=== PATIENT | female | born 2000 | race Caucasian/White ===

== ENCOUNTER 2019-04-29 00:30 | Emergency (ER) | payer MEDICAID ==
--- NOTE | 2019-04-29 00:57 | EDM.PDOC ---
ED HPI GENERAL MEDICAL PROBLEM - General Chief Complaint: Abdominal Pain Stated Complaint: ABD PAIN Time Seen by Provider: 04/29/19 00:39 - History of Present Illness INITIAL COMMENTS - FREE TEXT/NARRATIVE: HISTORY AND PHYSICAL: History of present illness: The patient is a 18-year-old female with no history who says that she gets regular periods but is unsure if she is and presents with suprapubic pain and pressure with urination that started just prior to arrival. The patient says that throughout the day she had no systemic complaints of fever chills abdominal pain flank pain dysuria frequency or urgency and she says she has no STD risks. She denies any vaginal discharge or irregular vaginal bleeding. She says that this evening she was laying in bed and she felt the urge to urinate she got up to go to the bathroom and only had dribbling and a lot of pressure with that. She did not have hematuria and she had some suprapubic discomfort with that so she thought she should come in. She says that her suprapubic pain does not localize right or left. She did not take any medications [id number]. She admits that she drinks caffeinated products along with water. She has Never had a UTI kidney stone or other problems such as ovarian cysts in the past Review of systems: As per history of present illness and below otherwise all systems reviewed and negative. Past medical history: As per history of present illness and as reviewed below otherwise noncontributory. Surgical history: As per history of present illness and as reviewed below otherwise noncontributory. Social history: No reported history of drug or alcohol abuse. Family history: As per history of present illness and as reviewed below otherwise noncontributory. Physical exam: General: Well-developed well-nourished female who is nontoxic and vital signs are noted by me. She moves easily in the ED without distress HEENT: Atraumatic, normocephalic, negative for conjunctival pallor or scleral icterus, mucous membranes moist, throat clear, neck supple, nontender, trachea midline. Lungs: Clear to auscultation, breath sounds equal bilaterally, chest nontender. Heart: S1S2, regular rate and rhythm no overt murmurs Abdomen: Soft, nondistended, nontender. NABS Negative for costovertebral tenderness. Pelvis: Stable nontender. Genitourinary: Deferred. Rectal: Deferred. Extremities: Atraumatic, negative for cords or calf pain. Neurovascular unremarkable. Neuro: Awake, alert, oriented. Cranial nerves II through XII unremarkable. Cerebellum unremarkable. Motor and sensory unremarkable throughout. Exam nonfocal. Diagnostics: UA with reflex UCG Therapeutics: I discussed the urine test with the patient I did offer her blood work as well as an x-ray to see if there is another cause for her suprapubic discomfort and she would like to decline at this time. I did tell her that she needs to drink more fluids as her specific gravity was 1020 and her urine did look somewhat darker on my visual inspection. She does admit that she doesn't miss early drink as much water and hydrating fluids as she should. I have offered her some Pyridium to help for the spasm and pressure and will give her follow-up Impression: Dysuria/suprapubic pain Definitive disposition and diagnosis as appropriate pending reevaluation and review of above. suprapubic Pain Score (Numeric/FACES): 5 - Related Data Allergies Allergy/AdvReac Type Severity Reaction Status Date / Time No Known Allergies Allergy Verified 04/29/19 00:44 Home Meds: Home Meds . [No Known Home Meds] 04/29/19 [History] Past Medical History - Past Surgical History GI Surgical History: Reports: Cholecystectomy Social & Family History - Family History Family Medical History: Noncontributory - Tobacco Use Smoking Status *Q: Never Smoker - Recreational Drug Use Recreational Drug Use: No ED ROS GENERAL - Review of Systems Review Of Systems: ROS reveals no pertinent complaints other than HPI. ED EXAM, GENERAL - Physical Exam Exam: See Below (See dictation) Course - Vital Signs Last Recorded V/S: Last Vital Signs Temp 35.8 C 04/29/19 00:37 Pulse 82 04/29/19 00:37 Resp 18 04/29/19 00:37 BP 133/80 04/29/19 00:37 Pulse Ox 96 04/29/19 00:37 - Orders/Labs/Meds Labs: Laboratory Tests 04/29/19 04/29/19 Range/Units 00:40 00:40 Urine Color YELLOW Urine Appearance CLEAR Urine pH 6.5 (5.0-8.0) Ur Specific [place] 1.020 (1.001-1.035) Urine Protein NEGATIVE (NEGATIVE) mg/dL Urine Glucose (UA) NEGATIVE (NEGATIVE) mg/dL Urine Ketones NEGATIVE (NEGATIVE) mg/dL Urine Occult Blood NEGATIVE (NEGATIVE) Urine Nitrite NEGATIVE (NEGATIVE) Urine Bilirubin NEGATIVE (NEGATIVE) Urine Urobilinogen 0.2 (<2.0) EU/dL Ur Leukocyte Esterase NEGATIVE (NEGATIVE) Urine HCG, Qual NEGATIVE (NEGATIVE) Departure - Departure Time of Disposition: 01:14 Disposition: Home, Self-Care 01 Condition: Good Clinical Impression: Suprapubic pain, Dysuria - Discharge Information Referrals: PCP,None [Primary Care Provider] - Forms: ED Department Discharge Additional Instructions: The following information is given to patients seen in the emergency department who are being discharged to home. This information is to outline your options for follow-up care. We provide all patients seen in our emergency department with a follow-up referral. The need for follow-up, as well as the timing and circumstances, are variable depending upon the specifics of your emergency department visit. If you don't have a primary care physician on staff, we will provide you with a referral. We always advise you to contact your personal physician following an emergency department visit to inform them of the circumstance of the visit and for follow-up with them and/or the need for any referrals to a consulting specialist. The emergency department will also refer you to a specialist when appropriate. This referral assures that you have the opportunity for followup care with a specialist. All of these measure are taken in an effort to provide you with optimal care, which includes your followup. Under all circumstances we always encourage you to contact your private physician who remains a resource for coordinating your care. When calling for followup care, please make the office aware that this follow-up is from your recent emergency room visit. If for any reason you are refused follow-up, please contact the [facility] emergency department at and ask to speak to the emergency department charge nurse. [facility] [address] [id number] Push hydration and try to reduce and/or avoid caffeinated products. Please call and schedule a follow-up appointment in our clinic for further care and reevaluation and return to ER as needed and as discussed. Filled the prescription for Pyridium that can help you with bladder spasm and discomfort. He may also use [id number] medications as you choose such as ibuprofen/ Motrin for any pain.
== END 2019-04-29 01:24 | disposition home or self-care (01) ==
LOC: MW.ED 00:30
DX: R10.30 Lower abdominal pain, unspecified (principal); R30.0 Dysuria
CPT/HCPCS: 81003; 81025; 99283

== ENCOUNTER 2019-09-08 12:32 | Emergency (ER) | payer MEDICAID ==
--- NOTE | 2019-09-08 13:17 | EDM.PDOC ---
ED HPI GENERAL MEDICAL PROBLEM - General Chief Complaint: ENT Problem Stated Complaint: EAR CLOGGED Time Seen by Provider: 09/08/19 13:16 Source of Information: Reports: Patient History Limitations: Reports: No Limitations - History of Present Illness INITIAL COMMENTS - FREE TEXT/NARRATIVE: HISTORY AND PHYSICAL: History of present illness: Patient is a 19-year-old female presents to the ED with complaint of ear pain, sore throat, and cough. She states symptoms began 2 days ago. She has been using drops in her ears without relief of symptoms. She denies fevers, chills, chest pain, nausea, vomiting, abdominal pain, diarrhea. Review of systems: As per history of present illness and below otherwise all systems reviewed and negative. Past medical history: As per history of present illness and as reviewed below otherwise noncontributory. Surgical history: As per history of present illness and as reviewed below otherwise noncontributory. Social history: No reported history of drug or alcohol abuse. Family history: As per history of present illness and as reviewed below otherwise noncontributory. Physical exam: General: Patient sitting comfortably in no acute distress and nontoxic appearing HEENT: Right TM is erythematous and bulging with loss of light reflex. Atraumatic, normocephalic, pupils reactive, negative for conjunctival pallor or scleral icterus, mucous membranes moist, throat clear, neck supple, nontender, trachea midline. No meningeal signs. Lungs: Clear to auscultation, breath sounds equal bilaterally, chest nontender. Heart: S1S2, regular, negative for clicks, rubs, or overt murmur. Abdomen: Soft, nondistended, nontender. Negative for masses or hepatosplenomegaly. Negative for costovertebral tenderness. No rigidity, rebound , guarding. Pelvis: Stable nontender. Genitourinary: Deferred. Rectal: Deferred. Extremities: Atraumatic, negative for cords or calf pain. Neurovascular unremarkable. Neuro: Awake, alert, oriented. Cranial nerves II through XII unremarkable. Cerebellum unremarkable. Motor and sensory unremarkable throughout. Exam nonfocal. Notes: Diagnostics: none Therapeutics: none Prescriptions: Amoxicillin Impression: Right otitis media Plan: Take antibiotic as instructed Alternate tylenol and motrin as needed Follow up with primary care provider Return to ED as needed as discussed Definitive disposition and diagnosis as appropriate pending reevaluation and review of above. ears Pain Score (Numeric/FACES): 8 - Related Data Allergies Allergy/AdvReac Type Severity Reaction Status Date / Time No Known Allergies Allergy Verified 09/08/19 13:00 Home Meds: Home Meds Amoxicillin 875 mg PO BID 7 Days #14 tab 09/08/19 [Rx] Past Medical History - Past Health History Medical/Surgical History: Denies Medical/Surgical History - Past Surgical History GI Surgical History: Reports: Cholecystectomy Social & Family History - Family History Family Medical History: Noncontributory - Tobacco Use Smoking Status *Q: Never Smoker - Recreational Drug Use Recreational Drug Use: No ED ROS ENT - Review of Systems Review Of Systems: Comprehensive ROS is negative, except as noted in HPI. ED EXAM, ENT - Physical Exam Exam: See Below (see dictation) Course - Vital Signs Last Recorded V/S: Last Vital Signs Temp 97.1 F 09/08/19 12:58 Pulse 93 09/08/19 12:58 Resp 18 09/08/19 12:58 BP 130/76 09/08/19 12:58 Pulse Ox 98 09/08/19 12:58 - Orders/Labs/Meds Orders: Active Orders 24 hr Category Date Time Status INFLUENZA A+B AG SCREEN [RM] Stat Lab 09/08/19 13:12 Stop Req Departure - Departure Time of Disposition: 13:23 Disposition: Home, Self-Care 01 Condition: Good Clinical Impression: Right otitis media - Discharge Information Prescriptions: Amoxicillin 875 mg PO BID 7 Days #14 tab Referrals: PCP,None [Primary Care Provider] - Forms: ED Department Discharge Additional Instructions: The following information is given to patients seen in the emergency department who are being discharged to home. This information is to outline your options for follow-up care. We provide all patients seen in our emergency department with a follow-up referral. The need for follow-up, as well as the timing and circumstances, are variable depending upon the specifics of your emergency department visit. If you don't have a primary care physician on staff, we will provide you with a referral. We always advise you to contact your personal physician following an emergency department visit to inform them of the circumstance of the visit and for follow-up with them and/or the need for any referrals to a consulting specialist. The emergency department will also refer you to a specialist when appropriate. This referral assures that you have the opportunity for follow-up care with a specialist. All of these measure are taken in an effort to provide you with optimal care, which includes your follow-up. Under all circumstances we always encourage you to contact your private physician who remains a resource for coordinating your care. When calling for follow-up care, please make the office aware that this follow-up is from your recent emergency room visit. If for any reason you are refused follow-up, please contact the [facility] Emergency Department at and asked to speak to the emergency department charge nurse. [facility] [address], [place] [address] [facility] [address] [place] [id number] Take antibiotic as instructed Alternate tylenol and motrin as needed Follow up with primary care provider Return to ED as needed as discussed Sepsis Event Note - Evaluation Sepsis Screening Result: No Definite Risk - Focused Exam Vital Signs: Vital Signs Temp Pulse Resp BP Pulse Ox 09/08/19 12:58 97.1 F 93 18 130/76 98 Date Exam was Performed: 09/08/19 Time Exam was Performed: 13:25 - My Orders Last 24 Hours: My Active Orders 09/08/19 13:12 INFLUENZA A+B AG SCREEN [RM] Stat - Assessment/Plan Last 24 Hours: My Active Orders 09/08/19 13:12 INFLUENZA A+B AG SCREEN [RM] Stat
== END 2019-09-08 13:53 | disposition home or self-care (01) ==
LOC: MW.ED 12:32
DX: H66.91 Otitis media, unspecified, right ear (principal)
CPT/HCPCS: 99283

== ENCOUNTER 2021-07-18 11:24 | Emergency (ER) | payer MEDICAID ==
--- NOTE | 2021-07-18 11:25 | EDM.PDOC ---
ED HPI GENERAL MEDICAL PROBLEM - General Chief Complaint: Respiratory Problem Stated Complaint: COUGH Time Seen by Provider: 07/18/21 11:24 Source of Information: Reports: Patient History Limitations: Reports: No Limitations - History of Present Illness INITIAL COMMENTS - FREE TEXT/NARRATIVE: HISTORY AND PHYSICAL: History of present illness: Patient is a 20-year-old female who presents to the emergency room with complaints of sore throat, mild nausea and cough x4 days. Mom states her 1-year-old daughter has had a fever which is now resolved and has a cough. She is concerned they may have COVID-19. Patient denies any fever, chills, headache, change in vision, syncope or near syncope. Denies any chest pain, back pain, shortness of breath. Denies any abdominal pain, vomiting, diarrhea, constipation or dysuria. Has not noted any blood in urine or stool. Patient has been eating and drinking appropriately. No recent travel or sick contacts. Has not been vaccinated, had COVID-19 about a year ago. Review of systems: As per history of present illness and below otherwise all systems reviewed and negative. Past medical history: As per history of present illness and as reviewed below otherwise noncontributory. Surgical history: As per history of present illness and as reviewed below otherwise noncontributory. Social history: See social history for further information Family history: As per history of present illness and as reviewed below otherwise noncontributory. Physical exam: General: Well developed and well nourished 20 year old female. Alert and or ientated x 3. Nontoxic in appearance and in no acute distress. Vital signs are stable and have been reviewed by me. Nursing notes were reviewed. HEENT: Atraumatic, normocephalic, pupils equal and reactive bilaterally, negative for conjunctival pallor or scleral icterus, mucous membranes moist, TMs normal bilaterally, throat clear, neck supple, nontender, trachea midline. No drooling or trismus noted. No meningeal signs. No hot potato voice noted. Lungs: Slightly diminished to auscultation bilaterally. No wheezes, rales, or rhonchi. Chest nontender. Normal work of breathing, no accessory muscles used. Heart: S1S2, regular rate and rhythm without overt murmur, gallops, or rubs. No JVD. No peripheral edema Abdomen: Soft, nondistended, nontender. Normoactive bowel sounds. Negative for masses or costovertebral tenderness. Skin: Intact, warm, dry. No lesions or rashes noted. Hematologic: No petechiae or purpra. Mucosa appropriate color and normal nail bed color and refill. Extremities: Atraumatic, moves all extremities per self without difficulty or deficits, negative for cords or calf pain. Neurovascular unremarkable. Neuro: Awake, alert, oriented. Cranial nerves II through XII unremarkable. Cerebellum unremarkable. Motor and sensory unremarkable throughout. Exam nonfocal. Psychiatric: Mood and affect are appropriate. Normal thought process. Answering questions appropriately. Please note that the patient was seen and evaluated during the 2019 SARS-CoV-2 novel coronavirus pandemic period. Community viral transmission is ongoing at time of this encounter and the emergency department is operating under pandemic response procedures. Medical Decision Making: Chest x-ray is unremarkable. Patient's Covid and influenza screening are negative. Due to length of symptoms and physical exam I will treat with a Z- Andrea. I have talked with the patient about today's findings, in addition to providing specific details for plan of care. Reassessment at the time of disposition demonstrates that the patient is in no acute distress. The patient is stable for discharge, counseling was provided and we discussed in great detail signs and symptoms that would prompt them to return to the Emergency Department. Medication, follow up and supportive care measures were reviewed and discussed. Voices understanding and is agreeable to plan of care. Denies any further questions or concerns at this time. Diagnostics: Influenza/COVID, chest x-ray Therapeutics: None Prescription: Z-Andrea Impression: Bronchitis Plan: 1. You were evaluated today on an emergent basis. Your COVID and influenza tests are negative. Treating you for bronchitis with Zpak. 2. You can alternate Tylenol and ibuprofen as needed for pain and fever management. 3. We encourage you to follow up with your primary care provider and/or recommended specialist in the next few days for re-evaluation and further care/management. 4. If your symptoms should worsen, new symptoms develop or any of the signs and symptoms we discussed should arise please return to the emergency room or call 911 (if needed). Definitive disposition and diagnosis as appropriate pending reevaluation and review of above. - Related Data Allergies Allergy/AdvReac Type Severity Reaction Status Date / Time No Known Allergies Allergy Verified 07/18/21 12:27 Home Meds: Home Meds Azithromycin [Zithromax] 1 dose PO DAILY 5 Days #6 tab 07/18/21 [Rx] Past Medical History - Past Health History Medical/Surgical History: Denies Medical/Surgical History - Past Surgical History GI Surgical History: Reports: Cholecystectomy Social & Family History - Family History Family Medical History: No Pertinent Family History ED ROS GENERAL - Review of Systems Review Of Systems: Comprehensive ROS is negative, except as noted in HPI. ED EXAM, GENERAL - Physical Exam Exam: See Below (See dictation) Course - Vital Signs Last Recorded V/S: Last Vital Signs Temp 98.6 F 07/18/21 11:50 Pulse 90 07/18/21 11:50 Resp 17 07/18/21 11:50 BP 127/80 07/18/21 11:50 Pulse Ox 97 07/18/21 11:50 - Orders/Labs/Meds Labs: Laboratory Tests 07/18/21 Range/Units 12:07 Influenza Type A RNA NEGATIVE (NEGATIVE) Influenza Type B RNA NEGATIVE (NEGATIVE) SARS-CoV-2 RNA (RUSSEL) NEGATIVE (NEGATIVE) Departure - Departure Time of Disposition: 12:50 Disposition: Home, Self-Care 01 Clinical Impression: Bronchitis - Discharge Information Prescriptions: Azithromycin [Zithromax] 1 dose PO DAILY 5 Days #6 tab Instructions: Acute Bronchitis, Adult, [id number] Forms: ED Department Discharge Additional Instructions: The following information is given to patients seen in the emergency department who are being discharged to home. This information is to outline your options for follow-up care. We provide all patients seen in our emergency department with a follow-up referral. The need for follow-up, as well as the timing and circumstances, are variable depending upon the specifics of your emergency department visit. If you don't have a primary care physician on staff, we will provide you with a referral. We always advise you to contact your personal physician following an emergency department visit to inform them of the circumstance of the visit and for follow-up with them and/or the need for any referrals to a consulting specialist. The emergency department will also refer you to a specialist when appropriate. This referral assures that you have the opportunity for follow-up care with a specialist. All of these measure are taken in an effort to provide you with optimal care, which includes your follow-up. Under all circumstances we always encourage you to contact your private physician who remains a resource for coordinating your care. When calling for follow-up care, please make the office aware that this follow-up is from your recent emergency room visit. If for any reason you are refused follow-up, please contact the [facility] Emergency Department at and asked to speak to the emergency department charge nurse. [facility] Primary [facility] [address] [place] [address] [facility] [address] [place] [address] Thank you for choosing the [facility] emergency department in [place] for your medical needs today. It was a pleasure caring for you. Today you were seen in the emergency department for cough Your prescription was electronically sent to: [facility] pharmacy Medication/Directions: Z-Andrea, antibiotic. Please take as directed 1. You were evaluated today on an emergent basis. Your COVID and influenza tests are negative. Treating you for bronchitis with Zpak. 2. You can alternate Tylenol and ibuprofen as needed for pain and fever management. 3. We encourage you to follow up with your primary care provider and/or recommended specialist in the next few days for re-evaluation and further care/management. 4. If your symptoms should worsen, new symptoms develop or any of the signs and symptoms we discussed should arise please return to the emergency room or call 911 (if needed). Sepsis Event Note (ED) - Focused Exam Vital Signs: Vital Signs Temp Pulse Resp BP Pulse Ox 07/18/21 11:50 98.6 F 90 17 127/80 97
--- NOTE | 2021-07-18 12:14 | CR ---
Indication: Cough Technique: Chest 1 view Comparison: None Findings/Impression: Cardiovascular and mediastinum: Heart size and vasculature are normal in caliber and appearance. Mediastinum is within normal limits. Lungs and pleural space: Lungs are clear. No sign of infiltrate or mass. No sign of pleural effusion. No pneumothorax. Bones and soft tissues: No significant findings. Dictated by Fabiola Keller MD @ 07/18/2021 12:14:13 PM (Electronically Signed)
[2021-07-18 12:48] LABS: CORONAVIRUS COVID-19 NAA NEGATIVE (NEGATIVE); INFLUENZA A NAA NEGATIVE (NEGATIVE); INFLUENZA B NAA NEGATIVE (NEGATIVE)
== END 2021-07-18 13:00 | disposition home or self-care (01) ==
LOC: MW.ED 11:24
DX: J40 Bronchitis, not specified as acute or chronic (principal); Z20.822 Contact with and (suspected) exposure to COVID-19
CPT/HCPCS: 0240U; 71045; 99283

== ENCOUNTER 2021-10-20 02:25 | Emergency (ER) | payer MEDICAID ==
[2021-10-20] MEDS ORDERED: Sodium Chloride 0.9% 2.5 ML Syringe FLUSH PRN (02:45)
[2021-10-20] MEDS ORDERED: Ondansetron 4 MG/2 ML SDV IVPUSH ONE (02:45)
[2021-10-20] MEDS ORDERED: Sodium Chloride 0.9% 1,000 ML IV ONE ×2 (02:45→04:50)
[2021-10-20] MEDS ORDERED: Sodium Chloride 0.9% 10 ML Syringe FLUSH PRN (02:45)
[2021-10-20] MEDS ORDERED: Ketorolac 30 MG/ML SDV IVPUSH ONE (02:46)
[2021-10-20 03:34] LABS: BLOOD UREA NITROGEN,BUN 11 mg/dL (7.0-18.0); CARBON DIOXIDE,CO2 24.5 mmol/L (21.0-32.0); CHLORIDE,CL 101 mmol/L (98-107); GLUCOSE RANDOM 124 mg/dL (74-106); LIPASE 56 U/L (73-393); POTASSIUM,K 3.2 mmol/L (3.5-5.1); SODIUM,NA 137 mmol/L (136-145)
[2021-10-20] MEDS ORDERED: Iopamidol 755 MG/ML 500 ML Multipack Bottle IVPUSH STA (04:01)
[2021-10-20] MEDS ORDERED: Ertapenem 1 GM in Sodium Chloride 0.9% 50 ML IV ONE (07:21)
== END 2021-10-20 08:09 | disposition home or self-care (01) ==
LOC: MW.ED 02:25
DX: I88.0 Nonspecific mesenteric lymphadenitis (principal)
CPT/HCPCS: 36415; 74177; 80053; 81001; 83690; 84703; 85025; 96365; 96375; 99284; J1335; J1885; J2405; J7030; Q9967; 99283

== ENCOUNTER 2021-11-10 15:11 | Emergency (ER) | payer MEDICAID ==
[2021-11-10] MEDS ORDERED: Diphtheria,Pertussis(Acell),Tetanus Vaccine 0.5 ML Syringe IM ONE (16:03)
[2021-11-10] MEDS ORDERED: Lidocaine 1% 5 ML VIAL INJECT ONE (16:03)
[2021-11-10] MEDS ORDERED: Bupivacaine 0.25% 10 ML SDV INJECT ONE (16:03)
[2021-11-10] MEDS ORDERED: Bacitracin Oint 1 GM U/D Packet TOP ONE (16:37)
== END 2021-11-10 17:20 | disposition home or self-care (01) ==
LOC: MW.ED 15:11
DX: S61.411A Laceration without foreign body of right hand, initial encounter (principal); Z23 Encounter for immunization; Z90.49 Acquired absence of other specified parts of digestive tract; W26.0XXA Contact with knife, initial encounter
CPT/HCPCS: 12001; 90471; 90715; 99282; J3490

== ENCOUNTER 2021-11-19 19:19 | Emergency (ER) | payer MEDICAID | END 2021-11-19 20:02 | disposition home or self-care (01) | LOC: MW.ED 19:19 | DX: S61.411D Laceration without foreign body of right hand, subsequent encounter (principal); Z48.02 Encounter for removal of sutures | CPT/HCPCS: 99281 ==

== ENCOUNTER 2022-03-29 13:53 | Emergency (ER) | payer MEDICAID ==
[2022-03-29] MEDS ORDERED: Acetaminophen 325 MG Tab PO ONE (15:26)
[2022-03-29] MEDS ORDERED: Ibuprofen 400 MG Tab PO ONE (15:26)
[2022-03-29] MEDS ORDERED: Penicillin G Benzathine 1,200,000 Units/2 ML Syringe IM ONE (16:42)
[2022-03-29 16:43] LABS: CORONAVIRUS COVID-19 NAA NEGATIVE (NEGATIVE); INFLUENZA A NAA NEGATIVE (NEGATIVE); INFLUENZA B NAA NEGATIVE (NEGATIVE)
== END 2022-03-29 17:22 | disposition home or self-care (01) ==
LOC: MW.ED 13:53
DX: J02.0 Streptococcal pharyngitis (principal); Z90.49 Acquired absence of other specified parts of digestive tract; Z20.822 Contact with and (suspected) exposure to COVID-19
CPT/HCPCS: 0240U; 87651; 96372; 99283; A9270; J0561

== ENCOUNTER 2023-01-06 | Emergency (ER) | payer MEDICAID ==
[2023-01-06 02:38] LABS: BILIRUBIN,URINE NEGATIVE (NEGATIVE); COLOR,URINE RED; GLUCOSE,URINE NEGATIVE (NEGATIVE); KETONES,URINE TRACE mg/dL (NEGATIVE); LEUKOCYTE ESTERASE,URINE TRACE (NEGATIVE); NITRITE,URINE POSITIVE (NEGATIVE); OCCULT BLOOD,URINE LARGE (NEGATIVE); PH,URINE 5.5 (5.0-8.0); PROTEIN,URINE 100 mg/dL (NEGATIVE)
[2023-01-06 02:42] LABS: APPEARANCE,URINE CLOUDY
[2023-01-06 02:43] LABS: BACTERIA,URINE 1+ (NEGATIVE); EPITHELIAL CELLS,URINE FEW (NONE-FEW); RBC,URINE TOO NUMEROUS TO CT (0-2/HPF)
[2023-01-06 02:51] LABS: BASOPHILS PERCENT AUTO 0.3 % (0.0-1.5); EOSINOPHILS ABSOLUTE AUTO 0.2 K/uL (0.0-0.7); EOSINOPHILS PERCENT AUTO 2.4 % (0.0-7.0); HEMATOCRIT 37.8 % (36.0-46.0); HEMOGLOBIN 12.7 g/dL (12.0-16.0); MEAN CORPUSCULAR HEMOGLOBIN 29.8 pg (27.0-32.0); MEAN CORPUSCULAR HGB CONC 33.6 g/dL (31.0-37.0); MEAN CORPUSCULAR VOLUME 88.7 fL (80.0-98.0); MONOCYTES ABSOLUTE AUTO 0.6 K/uL (0.0-0.8); MONOCYTES PERCENT AUTO 6.5 % (0.0-15.0); NEUTROPHILS ABSOLUTE AUTO 5.5 K/uL (1.4-5.7); NEUTROPHILS PERCENT AUTO 58.8 % (48.0-80.0); NRBC ABSOLUTE 0 K/uL; PLATELET COUNT,PLT 276 K/uL (150-400); RED BLOOD CELL COUNT 4.26 M/uL (4.30-5.90)
[2023-01-06] MEDS ORDERED: Cephalexin 500 MG Cap PO ONE (03:00)
== END 2023-01-06 03:25 | disposition home or self-care (01) ==
LOC: MW.ED
DX: O20.0 Threatened abortion (principal); Z3A.13 13 weeks gestation of pregnancy
CPT/HCPCS: 36415; 76817; 81001; 85025; 86850; 86900; 86901; 87086; 99284; A9270; 99283

== ENCOUNTER 2023-07-11 18:50 | Inpatient (IN) | payer MEDICAID ==
[2023-07-11] MEDS ORDERED: Sodium Chloride 0.9% 20 ML SDV IV PRN (19:01)
[2023-07-11] MEDS ORDERED: Water For Irrigation,Sterile 1,000 ML Container IRR PRN (19:01)
[2023-07-11] MEDS ORDERED: Methylergonovine 0.2 MG/1 ML Amp IM PRN (19:01)
[2023-07-11] MEDS ORDERED: Sodium Chloride 0.9% 10 ML Syringe FLUSH PRN (19:01)
[2023-07-11] MEDS ORDERED: Tranexamic Acid IN NACL,ISO-OS 1,000 MG in Premix Bag 1 BAG IV PRN ×2 (19:01)
[2023-07-11] MEDS ORDERED: Sodium Chloride 0.9% 2.5 ML Syringe FLUSH PRN (19:01)
[2023-07-11] MEDS ORDERED: Ampicillin 2 GM in Sodium Chloride 0.9% 100 ML IV ONE (19:01)
[2023-07-11] MEDS ORDERED: Carboprost Tromethamine 250 MCG/1 mL Vial IM PRN (19:01)
[2023-07-11] MEDS ORDERED: Ondansetron 4 MG/2 ML SDV IVPUSH PRN (19:01)
[2023-07-11] MEDS ORDERED: Lidocaine 1% 50 ML MDV INJECT PRN (19:01)
[2023-07-11] MEDS ORDERED: Misoprostol 200 MCG Tab PO PRN (19:01)
[2023-07-11] MEDS ORDERED: Oxytocin/0.9 % Sodium Chloride 30 UNIT/500 ML BAG IV SCH ×2 (19:15)
[2023-07-11] MEDS: Lactated Ringers 1,000 ML IV SCH (19:30)
[2023-07-11] MEDS ORDERED: Misoprostol 25 MCG (1/4 of 100 MCG) Tab VAG PRN ×2 (19:30→23:30)
[2023-07-11 19:35] LABS: HEMOGLOBIN 10.8 g/dL (12.0-16.0); MEAN CORPUSCULAR HEMOGLOBIN 29.3 pg (28.0-32.0); MEAN CORPUSCULAR HGB CONC 34.8 g/dL (32.0-36.0); MEAN PLATELET VOLUME 9.1 fL (9.4-12.3); PLATELET COUNT,PLT 292 K/uL (150-400); RED BLOOD CELL COUNT 3.69 M/uL (4.10-5.30); WHITE BLOOD CELL COUNT,WBC 9.85 K/uL (3.9-11.3)
[2023-07-11] MEDS ORDERED: ePHEDrine 50 MG/ML SDV IVPUSH PRN ×2 (19:37)
[2023-07-11] MEDS ORDERED: Phenylephrine HCl 0.5 MG/5 ML AMP IVPUSH PRN (19:37)
[2023-07-11] MEDS ORDERED: Ropivacaine HCl/PF 400 MG in Premix Bag 1 BAG EPIDUR SCH (19:45)
[2023-07-11] MEDS ORDERED: Ampicillin 1 GM in Sodium Chloride 0.9% 50 ML IV SCH (23:00)
[2023-07-12] MEDS: Ampicillin 1 GM in Sodium Chloride 0.9% 50 ML IV SCH ×3 (00:10→08:59)
[2023-07-12] MEDS: Nalbuphine 10 MG/0.5 ML Syringe IVPUSH PRN ×2 (04:15→06:15)
[2023-07-12] MEDS: Lactated Ringers 1,000 ML IV SCH (07:08)
[2023-07-12] MEDS ORDERED: dexmedeTOMIDine HCl 200 MCG/2 ML SDV ONE (07:32)
[2023-07-12] MEDS ORDERED: Bupivacaine 0.25% 10 ML SDV ONE (07:32)
[2023-07-12] MEDS ORDERED: Ibuprofen 800 MG Tab PO PRN (10:42)
[2023-07-12] MEDS ORDERED: Witch Hazel Medicated Pads 40/Jar TOP PRN (10:42)
[2023-07-12] MEDS ORDERED: Benzocaine/Menthol 20%-0.5% Spray 78 GM Cannister TOP PRN (10:42)
[2023-07-12] MEDS ORDERED: Acetaminophen 500 MG Tab PO PRN (10:42)
[2023-07-12] MEDS ORDERED: Docusate Sodium 100 MG Cap PO PRN (10:42)
[2023-07-12] MEDS ORDERED: oxyCODONE 5 MG Tab PO PRN (10:42)
[2023-07-12] MEDS ORDERED: Lanolin 100% Cream 7 GM Tube TOP PRN (10:42)
[2023-07-12 11:27] LABS: PH,UMBILICAL ARTERIAL 7.208 (7.18-7.38); PH,UMBILICAL VENOUS 7.31 (7.25-7.45)
[2023-07-13 06:03] LABS: HEMOGLOBIN 9.2 g/dL (12.0-16.0)
== END 2023-07-13 16:32 | disposition home or self-care (01) | DRG 807 ==
LOC: MW.OBCHECK 18:50 → MW.OB 18:53 → MW.OBCHECK 19:00 → OBSVTOIN 19:01 → MW.OB 19:01
PROVIDERS: ADMIT Obstetrics & Gynecology; ATTEND Obstetrics & Gynecology
PROC: 10E0XZZ Delivery of Products of Conception, External Approach (ICD-10-PCS; principal; 2023-07-12)
PROC: 3E0R3BZ Introduction of Anesthetic Agent into Spinal Canal, Percutaneous Approach (ICD-10-PCS; 2023-07-12)
PROC: 00HU33Z Insertion of Infusion Device into Spinal Canal, Percutaneous Approach (ICD-10-PCS; 2023-07-12)
PROC: 0HQ9XZZ Repair Perineum Skin, External Approach (ICD-10-PCS; 2023-07-12)
DX: O99.214 Obesity complicating childbirth (principal); Z37.0 Single live birth; E66.01 Morbid (severe) obesity due to excess calories; O70.0 First degree perineal laceration during delivery; Z3A.39 39 weeks gestation of pregnancy
CPT/HCPCS: 36415; 51702; 59025; 59409; 82803; 85014; 85018; 85027; 86592; 86850; 86900; 86901; A9270-GY; J0290; J2300; J2590; J2795; J3490; J7120

== ENCOUNTER 2023-11-13 19:10 | Emergency (ER) | payer MEDICAID | END 2023-11-13 20:14 | disposition home or self-care (01) | LOC: MW.ED 19:10 | DX: H66.001 Acute suppurative otitis media without spontaneous rupture of ear drum, right ear (principal); Z90.49 Acquired absence of other specified parts of digestive tract; Z79.899 Other long term (current) drug therapy | CPT/HCPCS: 99282; 99283 ==